=== PATIENT | male | born 1975 | race Caucasian/White ===

== ENCOUNTER 2021-12-19 18:02 | Inpatient (IN) | payer MEDICAID ==
[~2021-12-19] VITALS: Ht 170.2 cm; Wt 77.9 kg
[2021-12-19 18:57] LABS: GLUCOMETER DEV NAME(LOC) POC.BV
[2021-12-19 19:55] VITALS: BP 145/95
[2021-12-19] MEDS: ZOLPIDEM TARTRATE 10 MG TABLET PO PRN (20:18)
[2021-12-19 21:23] VITALS: BP 131/86
[2021-12-20 07:10] LABS: BASOPHILS % (AUTO) 0.2 % (0.0-2.0); EOSINOPHILS % (AUTO) 0.5 % (1.0-6.0); HEMATOCRIT 42.4 % (41-53); HEMOGLOBIN 14.4 g/dL (13.5-17.5); LYMPHOCYTES # (AUTO) 1.7 K/uL (1.0-4.8); LYMPHOCYTES % (AUTO) 31.9 % (22.0-44.0); MEAN CORPUSCULAR HEMOGLOBIN 32.2 pg (26.0-34.0); MEAN CORPUSCULAR VOLUME 95 fL (80-100); MONOCYTES # (AUTO) 0.5 K/uL (0.1-1.0); MONOCYTES % (AUTO) 9.7 % (2.0-9.0); NEUTROPHILS # (AUTO) 3.1 K/uL (1.8-7.7); NEUTROPHILS % (AUTO) 57.7 % (40.0-70.0); RED BLOOD CELL COUNT(AUTO) 4.47 MIL/uL (4.50-5.90); RED CELL DISTRIBUTION WIDTH 14.4 % (11.5-14.5)
[2021-12-20 07:26] LABS: HEMOGLOBIN A1C 5.2 % (3.8-5.6)
[2021-12-20 07:27] LABS: APPEARANCE,URINE CLEAR (CLEAR); BILIRUBIN,URINE NEGATIVE (NEGATIVE); GLUCOSE, URINE (UA) NEGATIVE (NEGATIVE); KETONES,URINE NEGATIVE (NEGATIVE); LEUKOCYTE ESTERASE ,URINE NEGATIVE (NEGATIVE); NITRATE,URINE NEGATIVE (NEGATIVE); OCCULT BLOOD,URINE NEGATIVE (NEGATIVE); PH,URINE 5.5 (5.0-8.0); PROTEIN,URINE NEGATIVE (NEGATIVE); SPECIFIC GRAVITIY, URINE 1.013 (1.003-1.030); UROBILINOGEN,URINE <=1.0 mg/dL (<=1.0)
[2021-12-20 07:28] LABS: ALANINE AMINOTRANSFERASE 116 U/L (12-78); ALBUMIN 3.2 g/dL (3.4-5.0); ALKALINE PHOSPHATASE 90 U/L (46-116); ANION GAP 10 mmol/L (8-16); ASPARTATE AMINOTRANSFERASE 114 U/L (15-37); BILIRUBIN,TOTAL 0.8 mg/dL (0.1-1.0); CALCIUM, TOTAL 8.8 mg/dL (8.8-10.5); CARBON DIOXIDE 27 mmol/L (22-29); CHLORIDE 102 mmol/L (98-107); CHOL/HDL RATIO 3.1 (4.2-7.3); CHOLESTEROL 150 mg/dL (131-200); CREATININE 0.85 mg/dL (0.60-1.30); FREE T4 (FREE THYROXINE) 0.71 ng/dL (0.76-1.46); GLUCOSE,RANDOM 106 mg/dL (70-110); HDL CHOLESTEROL 49 mg/dL (40-60); LDL CHOL (CALC.) 80 mg/dL (0-130); POTASSIUM 3.7 mmol/L (3.5-5.1); SODIUM SERUM 139 mmol/L (136-145); THYROID STIMULATING HORMONE 1.55 uIU/mL (0.36-3.74); TOTAL PROTEIN, SERUM 6.2 g/dL (6.4-8.2); TRIGLYCERIDES 103 mg/dL (15-150); UREA NITROGEN, BLOOD 11 mg/dL (7-18)
[2021-12-20 07:29] LABS: GLOMERULAR FILTR. RATE CALC > 60 mL/min (>60)
[2021-12-20 07:32] LABS: AMPHET/METH SCREEN,URINE POSITIVE (NEGATIVE); BARBITURATE SCREEN, URINE NEGATIVE (NEGATIVE); BENZODIAZEPINES SCREEN,URINE NEGATIVE (NEGATIVE); CANNABINOID SCREEN,URINE NEGATIVE (NEGATIVE); COCAINE SCREEN,URINE NEGATIVE (NEGATIVE); METHADONE SCREEN, URINE NEGATIVE (NEGATIVE); OPIATE SCREEN,URINE NEGATIVE (NEGATIVE)
[2021-12-20 07:34] LABS: PHENCYCLIDINE SCREEN,URINE NEGATIVE (NEGATIVE)
[2021-12-20 07:52] LABS: PLATELET COUNT (AUTO) 104 K/uL (150-450)
[2021-12-20] MEDS: LORazepam 2 MG TABLET PO PRN ×3 (07:59→17:17)
[2021-12-20] MEDS: HALOPERIDOL 5 MG TABLET PO PRN ×3 (07:59→17:17)
[2021-12-20 08:00] VITALS: BP 145/94
[2021-12-20] MEDS ORDERED: PETROLATUM,WHITE 28 GM JELLY TP PRN (10:15)
[2021-12-20] MEDS ORDERED: DOCUSATE SODIUM 100 MG CAPSULE PO PRN (10:15)
[2021-12-20] MEDS ORDERED: ACETAMINOPHEN 325 MG TABLET PO PRN (10:15)
[2021-12-20] MEDS ORDERED: BACITRACIN 28 GM OINTMENT TP PRN (10:15)
[2021-12-20] MEDS ORDERED: MAG HYDROX/AL HYDROX/SIMETH ES 30 ML SUSPENSION UDCUP PO PRN (10:15)
[2021-12-20] MEDS ORDERED: BENZOCAINE/MENTHOL LOZENGE PO PRN (10:15)
[2021-12-20] MEDS ORDERED: ONDANSETRON HCL 4 MG TABLET PO PRN (10:15)
[2021-12-20] MEDS ORDERED: MAGNESIUM HYDROXIDE SUSPENSION 30 ML UDCUP PO PRN (10:15)
[2021-12-20] MEDS ORDERED: ALBUTEROL SULFATE HFA 90 MCG/PUFF 8 GM INHALER IH PRN (10:15)
[2021-12-20] MEDS ORDERED: OMEPRAZOLE 20 MG CAPSULE PO PRN (10:15)
[2021-12-20] MEDS ORDERED: CloNIDine HCL 0.1 MG TABLET PO PRN (10:15)
[2021-12-20] MEDS ORDERED: LOPERAMIDE HCL 2 MG CAPSULE PO PRN (10:15)
[2021-12-20] MEDS ORDERED: IBUPROFEN 600 MG TABLET PO PRN (10:15)
[2021-12-20] MEDS: ZOLPIDEM TARTRATE 10 MG TABLET PO PRN (20:25)
[2021-12-20 20:31] VITALS: BP 148/86
[2021-12-21] MEDS: HALOPERIDOL 5 MG TABLET PO PRN ×3 (04:09→16:51)
[2021-12-21] MEDS: LORazepam 2 MG TABLET PO PRN ×3 (04:09→16:51)
[2021-12-21 08:40] VITALS: BP 162/100
[2021-12-21] MEDS: BuPROPion HCL 75 MG TABLET PO SCH (08:57)
[2021-12-21] MEDS: DIVALPROEX SODIUM 500 MG DR TABLET PO SCH ×2 (08:57→16:16)
[2021-12-21 10:27] VITALS: BP 139/70
[2021-12-21 20:18] VITALS: BP 149/80
[2021-12-21] MEDS ORDERED: OLANZapine 5 MG TABLET PO SCH (21:00)
[2021-12-21] MEDS: ZOLPIDEM TARTRATE 10 MG TABLET PO PRN (23:42)
[2021-12-22 00:38] VITALS: BP 139/90
[2021-12-22 08:39] VITALS: BP 137/95
[2021-12-22] MEDS: ChlordiazePOXIDE HCL 10 MG CAPSULE PO SCH ×2 (08:46→16:16)
[2021-12-22] MEDS: DIVALPROEX SODIUM 500 MG DR TABLET PO SCH ×2 (08:46→16:16)
[2021-12-22] MEDS: BuPROPion HCL 75 MG TABLET PO SCH (08:46)
[2021-12-22] MEDS: HALOPERIDOL 5 MG TABLET PO PRN (10:37)
[2021-12-22] MEDS ORDERED: BUPR-344 PO (18:19)
[2021-12-22] MEDS ORDERED: OLAN5TAB52 PO (18:19)
[2021-12-22] MEDS ORDERED: DIVA-112 PO (18:19)
== END 2021-12-22 18:30 | disposition home or self-care (01) | DRG 750 ==
LOC: B2S 18:26
PROVIDERS: ADMIT Psychiatry & Neurology Psychiatry; ATTEND Psychiatry & Neurology Psychiatry
DX: F25.9 Schizoaffective disorder, unspecified (principal); E78.5 Hyperlipidemia, unspecified; I10 Essential (primary) hypertension; Z87.891 Personal history of nicotine dependence; Z20.822 Contact with and (suspected) exposure to COVID-19
CPT/HCPCS: 80053; 80061; 80307; 81003; 83036; 84439; 84443; 85025

== ENCOUNTER 2022-06-03 18:36 | Inpatient (IN) | payer MEDICAID, OTHER ==
[~2022-06-03] VITALS: Ht 170.2 cm; Wt 83.0 kg
[~2022-06-03 18:36] MED LIST: BUPR-344 PO; DIVA-112 PO; OLAN5TAB52 PO
[2022-06-03 21:38] LABS: ANION GAP 20 mmol/L (8-16); CALCIUM, TOTAL 8.5 mg/dL (8.8-10.5); CARBON DIOXIDE 19 mmol/L (22-29); CHLORIDE 87 mmol/L (98-107); CREATININE 1.19 mg/dL (0.60-1.30); GLUCOSE,RANDOM 150 mg/dL (70-110); POTASSIUM 3.5 mmol/L (3.5-5.1); SODIUM SERUM 126 mmol/L (136-145); UREA NITROGEN, BLOOD 12 mg/dL (7-18)
[2022-06-03 21:40] LABS: GLOMERULAR FILTR. RATE CALC > 60 mL/min (>60)
[2022-06-03 21:43] LABS: BASOPHILS % (AUTO) 0.9 % (0.0-2.0); EOSINOPHILS % (AUTO) 0.1 % (1.0-6.0); HEMATOCRIT 39.5 % (41-53); HEMOGLOBIN 13.8 g/dL (13.5-17.5); LYMPHOCYTES # (AUTO) 2.8 K/uL (1.0-4.8); LYMPHOCYTES % (AUTO) 26.5 % (22.0-44.0); MEAN CORPUSCULAR HEMOGLOBIN 32.5 pg (26.0-34.0); MEAN CORPUSCULAR VOLUME 93 fL (80-100); MONOCYTES # (AUTO) 0.5 K/uL (0.1-1.0); MONOCYTES % (AUTO) 5.2 % (2.0-9.0); NEUTROPHILS # (AUTO) 7.2 K/uL (1.8-7.7); NEUTROPHILS % (AUTO) 67.3 % (40.0-70.0); RED BLOOD CELL COUNT(AUTO) 4.26 MIL/uL (4.50-5.90); RED CELL DISTRIBUTION WIDTH 14.4 % (11.5-14.5)
[2022-06-03 21:44] LABS: ALBUMIN 3.6 g/dL (3.4-5.0); ALKALINE PHOSPHATASE 158 U/L (46-116); BILIRUBIN,TOTAL 2.7 mg/dL (0.1-1.0); TOTAL PROTEIN, SERUM 7.2 g/dL (6.4-8.2)
[2022-06-03] MEDS ORDERED: SODIUM CHLORIDE 1 GM TABLET PO ONE (22:00)
[2022-06-03 22:02] LABS: ALANINE AMINOTRANSFERASE 86 U/L (12-78); ASPARTATE AMINOTRANSFERASE 340 U/L (15-37)
[2022-06-03 22:16] LABS: PLATELET COUNT (AUTO) 41 K/uL (150-450); PLATELET MORPHOLOGY COMMENT LARGE PLTS PRESENT
[2022-06-03 22:20] LABS: LIPASE 85 U/L (73-393); VALPROIC ACID < 3 mcg/mL (50-100)
[2022-06-03] MEDS ORDERED: LORazepam 2 MG TABLET ONE (23:18)
[2022-06-03] MEDS ORDERED: LORazepam 2 MG TABLET PO ONE (23:30)
[2022-06-04] VITALS (9 sets, daily range): BP systolic 127–148; BP diastolic 56–90
[2022-06-04 00:08] LABS: COVID AG,FIA SOURCE NASOPHARYNGEAL
[2022-06-04] MEDS ORDERED: DiphenhydrAMINE HCL 25 MG CAPSULE PO ONE (00:30)
[2022-06-04] MEDS ORDERED: HALOPERIDOL 5 MG TABLET PO ONE (00:30)
[2022-06-04] MEDS ORDERED: TUBERCULIN, PURIFIED PROTEIN DERIVATIVE 5 TU/0.1 ML SYRINGE ID ONE (09:45)
[2022-06-04] MEDS ORDERED: MAGNESIUM HYDROXIDE SUSPENSION 30 ML UDCUP PO PRN (09:45)
[2022-06-04] MEDS ORDERED: LOPERAMIDE HCL 2 MG CAPSULE PO PRN ×2 (09:45)
[2022-06-04] MEDS ORDERED: GuaiFENesin/D-METHORPHAN [SUGAR-FREE] 200-20MG/10 ML SYRUP UDCUP PO PRN (09:45)
[2022-06-04] MEDS ORDERED: ZOLPIDEM TARTRATE 10 MG TABLET PO PRN (09:45)
[2022-06-04] MEDS ORDERED: CYANOCOBALAMIN 1,000 MCG/ML VIAL IM ONE (09:45)
[2022-06-04] MEDS ORDERED: PROMETHAZINE HCL 25 MG TABLET PO PRN (09:45)
[2022-06-04] MEDS ORDERED: DIAZEPAM 10 MG TABLET PO PRN (09:45)
[2022-06-04] MEDS ORDERED: DIAZEPAM 5 MG TABLET PO ONE (09:45)
[2022-06-04] MEDS ORDERED: ACETAMINOPHEN 325 MG TABLET PO PRN (09:45)
[2022-06-04] MEDS ORDERED: OLANZapine 5 MG RAPDIS TABLET PO PRN (09:45)
[2022-06-04] MEDS ORDERED: HydrOXYzine PAMOATE 50 MG CAPSULE PO PRN (09:45)
[2022-06-04] MEDS: THIAMINE 100 MG TABLET PO SCH (18:56)
[2022-06-04] MEDS: MELATONIN 5 MG TABLET PO SCH (21:09)
[2022-06-04] MEDS: OLANZapine 5 MG RAPDIS TABLET PO SCH (21:10)
[2022-06-04] MEDS: DIVALPROEX SODIUM 500 MG ER TABLET PO SCH (21:10)
[2022-06-05] VITALS (7 sets, daily range): BP systolic 108–143; BP diastolic 65–87
[2022-06-05] MEDS ORDERED: DIAZEPAM 10 MG TABLET PO PRN (07:00)
[2022-06-05] MEDS: NALTREXONE HCL 50 MG TABLET PO SCH (08:44)
[2022-06-05] MEDS: DIAZEPAM 10 MG TABLET PO SCH ×4 (08:44→21:07)
[2022-06-05] MEDS: THIAMINE 100 MG TABLET PO SCH ×2 (08:44→16:55)
[2022-06-05] MEDS: OMEGA-3/DHA/EPA/FISH OIL 1,000 MG CAPSULE PO SCH (08:44)
[2022-06-05] MEDS: FOLIC ACID 1 MG TABLET PO SCH (08:44)
[2022-06-05] MEDS: MULTIVITAMINS WITH MINERALS, THERAPEUTIC TABLET PO SCH (08:44)
[2022-06-05] MEDS: DIVALPROEX SODIUM 500 MG ER TABLET PO SCH (21:06)
[2022-06-05] MEDS: OLANZapine 5 MG RAPDIS TABLET PO SCH (21:07)
[2022-06-05] MEDS: MELATONIN 5 MG TABLET PO SCH (21:07)
[2022-06-06 08:10] VITALS: BP 115/63
[2022-06-06] MEDS: FOLIC ACID 1 MG TABLET PO SCH (08:14)
[2022-06-06] MEDS: OMEGA-3/DHA/EPA/FISH OIL 1,000 MG CAPSULE PO SCH (08:14)
[2022-06-06] MEDS: MULTIVITAMINS WITH MINERALS, THERAPEUTIC TABLET PO SCH (08:14)
[2022-06-06] MEDS: THIAMINE 100 MG TABLET PO SCH ×2 (08:15→17:58)
[2022-06-06] MEDS: NALTREXONE HCL 50 MG TABLET PO SCH (08:15)
[2022-06-06] MEDS: DIAZEPAM 10 MG TABLET PO SCH ×4 (08:15→22:07)
[2022-06-06] MEDS: OMEPRAZOLE 20 MG CAPSULE PO SCH (08:32)
[2022-06-06 15:00] VITALS: BP 128/75
[2022-06-06 20:11] VITALS: BP 118/60
[2022-06-06] MEDS: OLANZapine 5 MG RAPDIS TABLET PO SCH (20:51)
[2022-06-06] MEDS: DIVALPROEX SODIUM 500 MG ER TABLET PO SCH (20:51)
[2022-06-06] MEDS: MELATONIN 5 MG TABLET PO SCH (20:52)
[2022-06-06] MEDS: MAG HYDROX/AL HYDROX/SIMETH ES 30 ML SUSPENSION UDCUP PO PRN (22:15)
[2022-06-07] MEDS: MAG HYDROX/AL HYDROX/SIMETH ES 30 ML SUSPENSION UDCUP PO PRN ×2 (00:53→10:37)
[2022-06-07 00:54] VITALS: BP 134/78
[2022-06-07] MEDS ORDERED: DIAZEPAM 5 MG TABLET PO PRN (07:00)
[2022-06-07] MEDS: FOLIC ACID 1 MG TABLET PO SCH (08:10)
[2022-06-07] MEDS: DIAZEPAM 5 MG TABLET PO SCH ×2 (08:10→13:24)
[2022-06-07] MEDS: OMEPRAZOLE 20 MG CAPSULE PO SCH (08:10)
[2022-06-07] MEDS: NALTREXONE HCL 50 MG TABLET PO SCH (08:10)
[2022-06-07] MEDS: THIAMINE 100 MG TABLET PO SCH (08:10)
[2022-06-07] MEDS: OMEGA-3/DHA/EPA/FISH OIL 1,000 MG CAPSULE PO SCH (08:10)
[2022-06-07] MEDS: MULTIVITAMINS WITH MINERALS, THERAPEUTIC TABLET PO SCH (08:10)
[2022-06-07 08:15] VITALS: BP 134/70
[2022-06-07 10:52] VITALS: BP 134/70
[2022-06-07 11:45] VITALS: BP 115/60
[2022-06-07 13:10] VITALS: BP 136/76
[2022-06-08] MEDS ORDERED: DIAZEPAM 5 MG TABLET PO PRN (07:00)
== END 2022-06-07 15:02 | disposition left against medical advice (07) | DRG 750 ==
LOC: EMS 18:38 → B3A 06-04 10:19
PROVIDERS: ADMIT Psychiatry & Neurology Psychiatry; ATTEND Psychiatry & Neurology Psychiatry
DX: F25.9 Schizoaffective disorder, unspecified (principal); D69.6 Thrombocytopenia, unspecified; R45.851 Suicidal ideations; K70.30 Alcoholic cirrhosis of liver without ascites; E78.5 Hyperlipidemia, unspecified; E87.1 Hypo-osmolality and hyponatremia; F10.229 Alcohol dependence with intoxication, unspecified; F15.10 Other stimulant abuse, uncomplicated; F17.200 Nicotine dependence, unspecified, uncomplicated; I10 Essential (primary) hypertension; F32.A Depression, unspecified; F41.9 Anxiety disorder, unspecified; J44.9 Chronic obstructive pulmonary disease, unspecified; Z55.9 Problems related to education and literacy, unspecified; Z59.00 Homelessness unspecified; Z63.9 Problem related to primary support group, unspecified; Z65.3 Problems related to other legal circumstances; Z91.199 Patient's noncompliance with other medical treatment and regimen due to unspecified reason
CPT/HCPCS: 80053; 80164; 83690; 85025; 99285; G0480; Q9967